=== PATIENT | female | born 1990 | race Caucasian/White ===

== ENCOUNTER 2019-07-30 10:30 | Inpatient (IN) ==
[2019-07-30] MEDS ORDERED: LACTATED RINGERS 1,000 ML IV ONE (10:58)
[2019-07-30] MEDS ORDERED: ACETAMINOPHEN 325 MG TABLET PO ONE (11:00)
[2019-07-30] MEDS ORDERED: ONDANSETRON 4 MG/2 ML VIAL IV ONE ×2 (11:02→13:10)
--- NOTE | 2019-07-30 11:06 | Emergency Department Note ---
General Adult HPI - General Chief complaint: Cold/Flu Symptoms Stated complaint: Fever, cough, body aches, nausea Time Seen by Provider: 07/30/19 10:35 Source: patient Mode of arrival: ambulatory - History of Present Illness HPI Narrative: 28-year-old female presents to ED via private vehicle with a history of cough, generalized body aches and fevers off and on all week up. She does state that she had a temperature of 104 this morning. Did not take any Tylenol. She's had some sweats, little bit of nausea, decreased by mouth intake, but denies any diarrhea, nice abdominal pain or chest pain, she does have a nonproductive cough. Exposed to someone from [place] the end of June. She does live with her boyfriend who is currently not symptomatic. No history of asthma, she feels a little bit short of breath, little bit winded and fatigued. no History of lower extremity pain or swelling. She takes metformin for PCO S, denies history of diabetes. Denies any loss of smell or hearing, denies sore throat, she has had headaches off and on, denies headache at this time, no vomiting - Related Data Home Medications Medication Instructions Recorded Confirmed levonorgestrel 20 mcg/24 hours (5 1 device INTRAUTERI ONCE 12/20/18 07/26/19 yrs) 52 mg intrauterine device Previous Rx's Medication Instructions Recorded metformin 500 mg tablet 500 mg PO BID #180 tab 04/12/19 spironolactone 50 mg tablet See Rx Instructions .ROUTE 04/12/19 .COMPLEX #180 each Allergies Allergy/AdvReac Type Severity Reaction Status Date / Time Cefaclor [From [facility]] AdvReac Unknown Unknown Verified 07/26/19 11:29 Review of Systems All systems ED: reviewed and negative except as stated. Constitutional: Reports: fever, chills, weakness, sweats Eyes: Denies: eye pain ENT ED: Denies: ear pain, throat pain, dental pain, hearing loss, congestion Cardiovascular: Reports: dyspnea on exertion. Denies: chest pain, palpitations Respiratory: Reports: shortness of breath, cough. Denies: wheezes Gastrointestinal: Reports: nausea. Denies: abdominal pain, vomiting Genitourinary: Denies: dysuria, urgency Musculoskeletal: Denies: back pain Neurological: Denies: headache Endocrine: Reports: fatigue Past Medical History - Past Medical History [facility] Narrative: History of polycystic ovarian syndrome. History of obesity Source: nursing notes reviewed Surgical history ED: Reports: non-contributory Family history: Reports: non-contributory - Social History smoking status: Never smoker Alcohol use: Reports: None, Rarely Physical Exam Limitations: no limitations General appearance: alert, in no apparent distress, nontoxic Head: atraumatic, normocephalic, normal inspection Eye: Present: normal appearance, PERRL, EOMI. Absent: conjunctival injection ENT: Present: normal exam, normal oropharynx, mucous membranes moist, TM's normal bilaterally, normal external ear exam Neck: Present: normal inspection, full ROM, trachea midline. Absent: tenderness, meningismus, lymphadenopathy, thyromegaly Chest: Present: normal inspection, symmetric chest wall rise. Absent: tenderness Respiratory: Present: normal lung sounds bilaterally. Absent: respiratory distress, rales/crackles, wheezes, stridor, accessory muscle use Cardiovascular: Present: regular rate, normal rhythm, normal heart sounds Abdominal: Present: soft, normal bowel sounds. Absent: distention, tenderness Extremities: Present: normal inspection, full ROM. Absent: tenderness Back: Present: normal inspection. Absent: CVA tenderness (R), CVA tenderness (L) Neurological: Present: alert, oriented X3, CN II-XII intact. Absent: motor sensory deficit Psychiatric: Present: normal affect, normal mood Skin: Present: warm, dry, normal color. Absent: rash, hives, cyanosis, erythema Course Vital Signs Temperature 98.0 F 07/30/19 10:31 Pulse Rate 115 H 07/30/19 10:31 Respiratory Rate 20 07/30/19 10:31 Blood Pressure 132/85 07/30/19 10:31 Pulse Oximetry (%) 85 L 07/30/19 10:31 Temperature 98.3 F 07/30/19 11:55 Pulse Rate 115 H 07/30/19 14:37 Respiratory Rate 21 07/30/19 14:37 Blood Pressure 119/74 07/30/19 14:37 Pulse Oximetry (%) 94 07/30/19 14:37 Medical Decision Making - MDM Narrative Medical decision making narrative: Impression is pneumonia, bilateral. - Lab Data Lab results reviewed: Yes I reviewed the patient's lab results. Result diagrams: 07/30/19 13:13 07/30/19 12:55 Lab Results 07/30/19 07/30/19 07/30/19 Range/Units 12:06 12:55 12:55 WBC TNP RBC TNP Hgb TNP Hct TNP MCV TNP MCH TNP MCHC TNP RDW TNP Plt Count TNP MPV TNP Total Counted Not Reportable Seg Neutrophils % (38-78) % Band Neutrophils % Not Reportable Lymphocytes % (15-49) % Monocytes % (Manual) (1-12) % Platelet Estimate Not Reportable RBC Morphology Not Reportable D-Dimer (0.00-0.40) ug/ml VBG Lactic Acid (0.5-2.0) mmol/L Sodium 130 L (133-145) mmol/L Potassium 3.9 (3.3-5.1) mmol/L Chloride 94 L (96-108) mmol/L Carbon Dioxide 22 (22-30) mmol/L Anion Gap 14.0 (8-16) BUN 5 L (6-20) mg/dl Creatinine 0.8 (0.6-1.1) mg/dl GFR Calculation 100 Glucose 113 H (70-105) mg/dL Calcium 8.5 L (8.6-10.4) mg/dl Total Bilirubin 0.4 (0.0-1.0) mg/dL AST 12 (0-37) U/l ALT 17 (0-40) U/l Alkaline Phosphatase 73 (39-117) U/L Total Creatine Kinase (24-170) IU/L C-Reactive Protein (0.0-0.8) mg/dl Total Protein 7.1 (5.9-8.4) gm/dL Albumin 3.6 (3.2-5.2) gm/dL Globulin 3.5 (2.2-3.7) gm/dL Albumin/Globulin Ratio 1.0 (1.0-2.3) Procalcitonin 0.34 (<0.10) ng/mL 07/30/19 07/30/19 07/30/19 Range/Units 12:57 12:58 12:59 WBC RBC Hgb Hct MCV MCH MCHC RDW Plt Count MPV Total Counted Seg Neutrophils % (38-78) % Band Neutrophils % Lymphocytes % (15-49) % Monocytes % (Manual) (1-12) % Platelet Estimate RBC Morphology D-Dimer 2.81 H (0.00-0.40) ug/ml VBG Lactic Acid 1.1 (0.5-2.0) mmol/L Sodium (133-145) mmol/L Potassium (3.3-5.1) mmol/L Chloride (96-108) mmol/L Carbon Dioxide (22-30) mmol/L Anion Gap (8-16) BUN (6-20) mg/dl Creatinine (0.6-1.1) mg/dl GFR Calculation Glucose (70-105) mg/dL Calcium (8.6-10.4) mg/dl Total Bilirubin (0.0-1.0) mg/dL AST (0-37) U/l ALT (0-40) U/l Alkaline Phosphatase (39-117) U/L Total Creatine Kinase 66 (24-170) IU/L C-Reactive Protein 32.7 H (0.0-0.8) mg/dl Total Protein (5.9-8.4) gm/dL Albumin (3.2-5.2) gm/dL Globulin (2.2-3.7) gm/dL Albumin/Globulin Ratio (1.0-2.3) Procalcitonin (<0.10) ng/mL 07/30/19 Range/Units 13:13 WBC 13.5 H RBC 4.28 Hgb 12.0 Hct 36.0 MCV 84.1 MCH 28.0 MCHC 33.3 RDW 13.5 Plt Count 322 MPV 10.0 Total Counted 100 Seg Neutrophils % 86 H (38-78) % Band Neutrophils % Not Reportable Lymphocytes % 10 L (15-49) % Monocytes % (Manual) 4 (1-12) % Platelet Estimate Normal RBC Morphology Normal D-Dimer (0.00-0.40) ug/ml VBG Lactic Acid (0.5-2.0) mmol/L Sodium (133-145) mmol/L Potassium (3.3-5.1) mmol/L Chloride (96-108) mmol/L Carbon Dioxide (22-30) mmol/L Anion Gap (8-16) BUN (6-20) mg/dl Creatinine (0.6-1.1) mg/dl GFR Calculation Glucose (70-105) mg/dL Calcium (8.6-10.4) mg/dl Total Bilirubin (0.0-1.0) mg/dL AST (0-37) U/l ALT (0-40) U/l Alkaline Phosphatase (39-117) U/L Total Creatine Kinase (24-170) IU/L C-Reactive Protein (0.0-0.8) mg/dl Total Protein (5.9-8.4) gm/dL Albumin (3.2-5.2) gm/dL Globulin (2.2-3.7) gm/dL Albumin/Globulin Ratio (1.0-2.3) Procalcitonin (<0.10) ng/mL - Radiology Data Radiology results reviewed: Yes I reviewed the patient's radiology results. Disposition Pt seen by COMPANY ACCOUNTANT/PA only: No Clinical Impression: Pneumonia Disposition: Xfer As Inpt ([facility]) Condition: Good Referrals: iKm Adames ARNP [Primary Care Provider] -
--- NOTE | 2019-07-30 11:25 | XRay Report ---
CLINICAL INFORMATION: dyspnea COMPARISON: None. FINDINGS: Heart size, mediastinum and pulmonary vessels are unremarkable. Moderate patchy left and smaller patchy right basilar infiltrate appreciated. Small left pleural effusion noted IMPRESSION: Moderate patchy left and small patchy right basilar infiltrate and small left pleural effusion Interpreted and Authenticated by: West Workman 07/30/19
[2019-07-30 13:54] LABS: Mean Cell Volume 84.1 fL (80.0-100.0); Mean Corpuscular HGB Conc 33.3 g/dL (31.0-36.0); Platelet Count 322 K/mcL (140-440); RBC 4.28 M/mcL (3.59-5.38); Red Cell Distribution Width 13.5 % (11.5-14.5); WBC 13.5 K/mcL (4.50-11.00)
[2019-07-30] MEDS ORDERED: IBUPROFEN 100 MG/5 ML ORAL SUSP PO ONE ×2 (13:55→14:00)
[2019-07-30 14:14] LABS: Lymphocytes % 10 % (15-49); Monocytes % (Manual) 4 % (1-12); Platelet Estimate NORMAL (NORMAL); RBC Morphology NORMAL (NORMAL); Segmented Neutrophils % 86 % (38-78)
[2019-07-30 14:18] LABS: C-Reactive Protein 32.7 mg/dl (0.0-0.8); Creatine Kinase 66 IU/L (24-170)
[2019-07-30 14:22] LABS: Bilirubin,Total 0.4 mg/dL (0.0-1.0); Blood Urea Nitrogen 5 mg/dl (6-20); Calcium 8.5 mg/dl (8.6-10.4)
[2019-07-30 14:23] LABS: ALT/SGPT 17 U/l (0-40); AST/SGOT 12 U/l (0-37); Albumin 3.6 gm/dL (3.2-5.2); Alkaline Phosphatase 73 U/L (39-117); Carbon Dioxide 22 mmol/L (22-30); Chloride 94 mmol/L (96-108); Globulin 3.5 gm/dL (2.2-3.7); Glomerular Filtration Rate 100; Glucose 113 mg/dL (70-105)
[2019-07-30] MEDS ORDERED: LEVOFLOXACIN 750 MG/150 ML BAG IV ONE (14:23)
[2019-07-30] MEDS ORDERED: PIPERACILLIN SODIUM/TAZOBACTAM 3.375 GM in DEXTROSE 5% IN WATER 50 ML IV ONE (14:24)
[2019-07-30] MEDS ORDERED: DEXTROSE 5% IN WATER 50 ML IV ONE (14:33)
--- NOTE | 2019-07-30 15:28 | Internal Med History&Physical ---
Medical - H&P: [facility] Patient information: Note initiated : 07/30/19 at 3:24 pm Service Date, if different from initiated Date: [] Patient: Meme Khan a 28 y/o F admitted on for Fever, cough, body aches, nausea. Chief Complaint: [] History of present illness: Ms. Khan is a 28 year old F Presents to the ED with continued fever. Patient states that on Thursday she developed a fever and then [facility]. Today morning she was evaluated by [facility] with a COVID test which was negative, this was a rapid test. She is continued a fever and chills. She developed occasional dry cough several days ago. She had a little bit of shortness of breath yesterday not as much today. She is had several episodes of nausea vomiting past couple nights. She does have some diarrhea but this is not too uncommon for her. [facility] [employer] [facility] [employer] about a week ago. She did have a visit from [place] on July 15, that person does not seem to have any symptoms at this point. She also complains of body aches and headaches. In the ED she evaluated have a check today which showed bilateral infiltrates. She was 85% on room air when she first arrived. She is tachycardic and mildly tachypneic. Procalcitonin was mildly elevated at 0.34 as well as CRP was significant elevated. Lactate was okay and d-dimer is elevated part of work-up for coronavirus. She denies any history of thrombosis or pain under legs. She is on oral contraceptive pills and has a job where she sits most of the time. She is also found to have low sodium 130. And leukocytosis. Review of Systems: Pertinent positives above. Denies chest or abdominal pain/. Remaining 10 point review of system reviewed negative Medical - H&P: PMH Medical history: Medical History (Last Reviewed 07/26/19 @ 12:47 by Kaylee Multani DO) Headache (Chronic) BMI 40.0-44.9, adult (Chronic) Abnormal facial hair (Chronic) Polycystic ovarian disease (Chronic) Elevated testosterone level in female (Chronic) Heartburn (Chronic) Acanthosis nigricans (Chronic) IUD check up (Chronic) Past Surgical History (Last Reviewed 07/26/19 @ 11:21 by Patricia Belcher CMA) Hx of fracture of arm (Chronic ~2000) History of tonsillectomy and adenoidectomy (Chronic ~1995) Family History (Last Reviewed 07/26/19 @ 11:21 by Patricia Belcher CMA) states her mother had asthma and did not know her father's history Social History (Last Updated 07/26/19 @ 12:51 by Kaylee Multani DO) Denies tobacco alcohol or drug use lives at home with boyfriend Medical - H&P: Meds Home Medications Medication Instructions Recorded Confirmed Type levonorgestrel 20 mcg/24 hours (5 1 device INTRAUTERI ONCE 12/20/18 07/26/19 History yrs) 52 mg intrauterine device metformin 500 mg tablet 500 mg PO BID #180 tab 04/12/19 07/26/19 Rx spironolactone 50 mg tablet See Rx Instructions .ROUTE 04/12/19 07/26/19 Rx .COMPLEX #180 each Allergies Allergy/AdvReac Type Severity Reaction Status Date / Time Cefaclor [From [facility]] AdvReac Unknown Unknown Verified 07/26/19 11:29 Medical - H&P: Exam - Constitutional Vitals: Temp Pulse Resp BP Pulse Ox 98.3 F 111 H 24 H 101/78 96 07/30/19 11:55 07/30/19 14:17 07/30/19 14:17 07/30/19 13:32 07/30/19 14:17 Exam: General: Alert, Awake, No acute Distress, obese Eyes/N/T: EOMI, PERRL, Head/Neck: neck supple, normocephalic atraumatic CV: Tacky but regular, No murmurs, normal s1/s2 Pulm: Diminished right base, no wheezing or rhonchi Abd: soft, nontender, +BS x4 Ext: no clubbing/cyanosis/edema Neuro: Alert, no focal deficits, moves all extremities, CN 2-12 grossly intact, symmetrical strength b/l upper/lower, sensations intact b/l upper/lower Skin: warm/dry Medical - H&P: Reslt - Labs CBC & Chem 7: 07/30/19 13:13 07/30/19 12:55 Labs: Short CBC 07/30/19 07/30/19 Range/Units 12:06 13:13 WBC TNP 13.5 H Hgb TNP 12.0 Hct TNP 36.0 Plt Count TNP 322 BMP 07/30/19 12:55 Sodium 130 L Potassium 3.9 Chloride 94 L Carbon Dioxide 22 BUN 5 L Creatinine 0.8 Glucose 113 H Calcium 8.5 L Cardiac Enzymes 07/30/19 Range/Units 12:57 Total Creatine Kinase 66 (24-170) IU/L Liver Function 07/30/19 Range/Units 12:55 Total Bilirubin 0.4 (0.0-1.0) mg/dL AST 12 (0-37) U/l ALT 17 (0-40) U/l Alkaline Phosphatase 73 (39-117) U/L Albumin 3.6 (3.2-5.2) gm/dL Medical - H&P: A/P - Narrative A/P Narrative: A: *PNA: suspect viral with bacterial superinfection vs atypical PNA -CXR with b/l infiltrates *Acute hypoxic respiratory failure: *Hyponatremia: *PCOS: on metformin/aldactone, Levonorgestrel IUD *Obesity: P: -Levaquin, pending SC/BC -myco/strep/leg -RVP and Covid pending -O2 supp, wean as able -IVF, f/u sodium -f/u PCT -ppx: lovenox
[2019-07-30] MEDS ORDERED: LACTULOSE 20 GM/30 ML ORAL.SOL PO PRN (17:12)
[2019-07-30] MEDS ORDERED: POTASSIUM CHLORIDE 40 MEQ in DEXTROSE 5% IN WATER 500 ML IV PRN (17:12)
[2019-07-30] MEDS ORDERED: IPRATROPIUM/ALBUTEROL 3 ML AMPUL.NEB NEB PRN (17:12)
[2019-07-30] MEDS ORDERED: MAGNESIUM SULFATE 2 GM/50 ML BAG IV PRN (17:12)
[2019-07-30] MEDS ORDERED: SENNOSIDES 1 TABLET PO PRN (17:12)
[2019-07-30] MEDS ORDERED: POLYETHYLENE GLYCOL 3350 17 GM PACKET PO PRN (17:12)
[2019-07-30] MEDS ORDERED: POTASSIUM CHLORIDE 20 MEQ TABLET PO PRN ×2 (17:12)
[2019-07-30] MEDS ORDERED: ONDANSETRON 4 MG/2 ML VIAL IV PRN (17:12)
[2019-07-30] MEDS ORDERED: LEVOFLOXACIN 750 MG/150 ML BAG IV SCH (17:12)
--- NOTE | 2019-07-30 18:12 | Ultrasound Report ---
CLINICAL INFORMATION: Elevated d-dimer COMPARISON: None. FINDINGS: The entire deep venous system, of both lower extremities, including the common femoral, superficial femoral, popliteal and paired trifurcation calf veins are easily compressible and show normal venous blood flow on color and spectral Doppler. No evidence of thrombus IMPRESSION: Negative exam - no evidence of deep vein thrombosis in either lower extremity. Interpreted and Authenticated by: West Workman 07/30/19
[2019-07-30] MEDS: ENOXAPARIN 40 MG/0.4 ML SYRINGE SQ SCH (19:41)
[2019-07-30] MEDS ORDERED: LEVONORGESTREL INTRAUTERI SCH (20:15)
[2019-07-30] MEDS: 0.9 % SODIUM CHLORIDE 10 ML SYRINGE IV SCH (20:31)
[2019-07-30] MEDS: DOCUSATE SODIUM 100 MG CAPSULE PO SCH (20:31)
[2019-07-30] MEDS ORDERED: metFORMIN 500 MG TABLET PO SCH (21:00)
[2019-07-31] MEDS: ACETAMINOPHEN 325 MG TABLET PO PRN ×2 (00:15→08:27)
[2019-07-31 07:23] LABS: Hematocrit 36.2 % (34.1-44.9); Hemoglobin 11.6 g/dL (11.2-15.7); Mean Cell Volume 87.9 fL (80.0-100.0); Mean Platelet Volume 10.2 fL (7.4-10.4); Platelet Count 296 K/mcL (140-440); RBC 4.12 M/mcL (3.59-5.38); Red Cell Distribution Width 13.7 % (11.5-14.5); WBC 12.1 K/mcL (4.50-11.00)
[2019-07-31 07:31] LABS: ALT/SGPT 16 U/l (0-40); AST/SGOT 12 U/l (0-37); Albumin 3.5 gm/dL (3.2-5.2); Albumin/Globulin Ratio 0.9 (1.0-2.3); Alkaline Phosphatase 83 U/L (39-117); Bilirubin,Direct < 0.2 mg/dL (0.0-0.3); Bilirubin,Total 0.3 mg/dL (0.0-1.0); Blood Urea Nitrogen 6 mg/dl (6-20); Calcium 8.4 mg/dl (8.6-10.4); Carbon Dioxide 23 mmol/L (22-30); Globulin 3.7 gm/dL (2.2-3.7); Glomerular Filtration Rate 118; Glucose 87 mg/dL (70-105); Lactate Dehydrogenase 206 U/L (94-250); Phosphorous 2.8 mg/dL (2.7-4.5); Triglycerides 94 mg/dl (<150); Uric Acid 5.1 mg/dL (2.5-8.0)
[2019-07-31 07:33] LABS: Chloride 94 mmol/L (96-108)
[2019-07-31] MEDS ORDERED: SODIUM CHLORIDE 1 GM TABLET PO ONE (07:57)
--- NOTE | 2019-07-31 07:58 | Internal Med Progress Note ---
Medical - PN: Subj Patient information: Note initiated : 07/31/19 at 7:53 am Service Date, if different from initiated Date: [] Patient: Meme Khan a 28 y/o F admitted on 07/30/19 for Fever, cough, body aches, nausea. Chief Complaint: [] Interval history: Ms. Khan is a 28 year old F Presents to the ED with continued fever. Patient states that on Thursday she developed a fever and then [facility]. Today morning she was evaluated by [facility] with a COVID test which was negative, this was a rapid test. She is continued a fever and chills. She developed occasional dry cough several days ago. She had a little bit of shortness of breath yesterday not as much today. She is had several episodes of nausea vomiting past couple nights. She does have some diarrhea but this is not too uncommon for her. [facility] [employer] about a week ago. She did have a visit from [place] on July 15, that person does not seem to have any symptoms at this point. She also complains of body aches and headaches. In the ED she evaluated have a check today which showed bilateral infiltrates. She was 85% on room air when she first arrived. She is tachycardic and mildly tachypneic. Procalcitonin was mildly elevated at 0.34 as well as CRP was significant elevated. Lactate was okay and d-dimer is elevated part of work-up for coronavirus. She denies any history of thrombosis or pain under legs. She is on oral contraceptive pills and has a job where she sits most of the time. She is also found to have low sodium 130. And leukocytosis. 07/30 She has occasional headache. She has a nonproductive cough. Fever this morning. Mild shortness of breath with certain positions. appears comfortable and nontoxic. Review of Systems: denies nausea/vomiting/chest or abdominal pain/diarrhea. Otherwise see above. - Constitutional Vitals: Vital Signs Temp Pulse Resp BP Pulse Ox 100.2 F H 99 H 22 113/69 93 07/31/19 05:43 07/31/19 04:00 07/31/19 04:00 07/31/19 04:00 07/31/19 04:00 Period Temp Pulse Resp BP Sys/Alba Pulse Ox Last 24 Hr 98.0 F-102.2 F 91-120 13-27 82-132/55-85 85-99 Intake and Output 07/30/19 07/31/19 07/31/19 21:59 05:59 13:59 Intake Total 150 1000 Balance 150 1000 Weight 115.212 kg Intake & Output: Intake & Output 07/30/19 07/31/19 07/31/19 21:59 05:59 13:59 Intake Total 150 1000 Balance 150 1000 Weight 115.212 kg Intake: IV 150 Oral 1000 Other: Urine Appearance Clear Urine Odor Normal # Voids 2 Exam: General: Alert, Awake, No acute Distress, obese Eyes/N/T: EOMI Head/Neck: neck supple, CV: mildly Tacky but regular, No murmurs, Pulm: mild b/l fine rales R>L, no wheezing Abd: soft, nontender, +BS x4 Ext: no clubbing/cyanosis/edema Neuro: Alert, no focal deficits, moves all extremities, Skin: warm/dry Medical - PN: Obj Da - Labs CBC & Chem 7: 07/31/19 05:17 07/31/19 05:17 Labs: Abnormal Lab Results 07/31/19 07/31/19 07/30/19 05:17 05:17 13:13 WBC 12.1 H 13.5 H Seg Neutrophils % 86 H Lymphocytes % 10 L D-Dimer Sodium 131 L Chloride 94 L BUN Glucose Calcium 8.4 L GGT 55 H C-Reactive Protein 37.0 H Albumin/Globulin Ratio 0.9 L 07/30/19 07/30/19 07/30/19 12:58 12:57 12:55 WBC Seg Neutrophils % Lymphocytes % D-Dimer 2.81 H Sodium 130 L Chloride 94 L BUN 5 L Glucose 113 H Calcium 8.5 L GGT C-Reactive Protein 32.7 H Albumin/Globulin Ratio Meds: Medications Acetaminophen (Tylenol) 650 mg PO Q6HP PRN PRN Reason: PAIN/FEVER > 101 Last Admin: 07/31/19 00:15 Dose: 650 mg Documented by: Albuterol/Ipratropium (Duoneb) 3 ml NEB Q4HP PRN PRN Reason: Shortness Of Breath Docusate Sodium (Colace) 100 mg PO BID LINDA Last Admin: 07/30/19 20:31 Dose: Not Given Documented by: Enoxaparin Sodium (Lovenox) 40 mg SQ DAILY [facility] Last Admin: 07/30/19 19:41 Dose: 40 mg Documented by: Potassium Chloride 40 meq/ (Dextrose) 520 mls @ 130 mls/hr IV UD PRN PRN Reason: Potassium < 3 Magnesium Sulfate (Magnesium Sulfate) 2 gm in 50 mls @ 50 mls/hr IV UD PRN PRN Reason: Magnesium </= 1.6 Levofloxacin (Levaquin) 750 mg in 150 mls @ 100 mls/hr IV Q24H [facility]; Protocol Lactulose (Cephulac) 20 gm PO DAILYP PRN PRN Reason: Constipation Metformin HCl (Glucophage) 500 mg PO BIDCC [facility] Ondansetron HCl (Zofran) 4 mg IV Q4HP PRN PRN Reason: Nausea And Vomiting Polyethylene Glycol (Miralax) 17 gm PO DAILYP PRN PRN Reason: Constipation Potassium Chloride (Kdur) 40 meq PO UD PRN PRN Reason: Potssium is 3-3.5 Potassium Chloride (Kdur) 40 meq PO UD PRN PRN Reason: Potassium < 3 Senna (Senokot) 2 tab PO DAILYP PRN PRN Reason: Constipation Sodium Chloride (Saline Flush) 10 ml IV Q8 [facility] Last Admin: 07/30/19 20:31 Dose: 10 ml Documented by: Spironolactone (Aldactone) 50 mg PO BID [facility] Medical - PN: A/P - Time Spent With Patient Total time spent is greater than 50% in coordination of care (as documented) at patient's floor/unit and/or counseling patient: - Narrative A/P Narrative: A: *PNA: suspect viral with bacterial superinfection vs atypical PNA -CXR with b/l infiltrates, elevated PCT -RVP neg *Acute hypoxic respiratory failure: -on 2L NC *SIRS: -febrile, leukocytosis slowly improving *Hyponatremia: *PCOS: on metformin/aldactone, Levonorgestrel IUD *Obesity: P: -Levaquin, pending SC/BC -myco/strep/leg -COVID pending -O2 supp, wean as able -f/u PCT -IS -CXR in AM -ppx: lovenox
[2019-07-31 08:04] LABS: Band Neutrophils % 2 % (0-10); Eosinophils % (Manual) 1 % (0-7); Lymphocytes % 18 % (15-49); Monocytes % (Manual) 8 % (1-12); Platelet Estimate NORMAL (NORMAL); RBC Morphology NORMAL (NORMAL); Segmented Neutrophils % 71 % (38-78)
[2019-07-31] MEDS: 0.9 % SODIUM CHLORIDE 10 ML SYRINGE IV SCH ×4 (08:27→20:31)
[2019-07-31] MEDS: ENOXAPARIN 40 MG/0.4 ML SYRINGE SQ SCH (08:31)
[2019-07-31] MEDS: metFORMIN 500 MG TABLET PO SCH ×2 (08:33→17:27)
[2019-07-31] MEDS: SPIRONOLACTONE 25 MG TABLET PO SCH ×2 (08:34→19:18)
[2019-07-31] MEDS: DOCUSATE SODIUM 100 MG CAPSULE PO SCH ×2 (08:35→19:18)
[2019-07-31] MEDS: LEVOFLOXACIN 750 MG/150 ML BAG IV SCH (08:40)
[2019-08-01] MEDS: 0.9 % SODIUM CHLORIDE 10 ML SYRINGE IV SCH ×4 (04:04→20:30)
[2019-08-01 06:38] LABS: Basophils # (Auto) 0.03 K/mcL (0.00-0.30); Basophils % (Auto) 0.3 % (0.0-2.0); Eosinophils # (Auto) 0.32 K/mcL (0.00-0.70); Eosinophils % (Auto) 3.7 % (0.0-7.0); Hematocrit 34.4 % (34.1-44.9); Lymphocytes # (Auto) 2.38 K/mcL (1.50-4.80); Lymphocytes % (Auto) 27.3 % (15.5-49.0); Mean Cell Volume 88.7 fL (80.0-100.0); Mean Platelet Volume 10.2 fL (7.4-10.4); Monocytes # (Auto) 0.67 K/mcL (0.10-0.90); Monocytes % (Auto) 7.7 % (1.0-12.0); Platelet Count 345 K/mcL (140-440); RBC 3.88 M/mcL (3.59-5.38); Red Cell Distribution Width 14.2 % (11.5-14.5); WBC 8.7 K/mcL (4.50-11.00)
[2019-08-01 06:42] LABS: C-Reactive Protein 27.5 mg/dl (0.0-0.8)
[2019-08-01 06:47] LABS: Blood Urea Nitrogen 8 mg/dl (6-20); Calcium 8.8 mg/dl (8.6-10.4); Carbon Dioxide 21 mmol/L (22-30); Chloride 99 mmol/L (96-108); Glomerular Filtration Rate 118; Glucose 95 mg/dL (70-105)
--- NOTE | 2019-08-01 06:57 | XRay Report ---
INDICATION: f/u abnormal cxr TECHNIQUE: PA and lateral upright chest x-ray COMPARISON: Previous examination dated 07/30/2019 FINDINGS: Lungs: There are bilateral pulmonary parenchymal densities with bibasilar predominance. There is right apical density as well. Findings are nonspecific but are consistent with pneumonia. Atypical pneumonia including viral pneumonia are possible. Clinical correlation and follow-up radiographs recommended. Right apical infiltrates appear slightly worse. No other interval change. Heart, vascular: No significant cardiomegaly. Pulmonary vascularity is normal. No pulmonary edema or pulmonary congestion Mediastinum, ritesh: No mediastinal widening. No hilar mass Pleura:There is mild blunting of the left posterior costophrenic sulcus and small effusion is possible. Thoracic spine, ribs: No thoracic compression fracture. Ribs are negative. No fracture. No lytic lesion IMPRESSION: 1. Bilateral pulmonary parenchymal densities. Slight interval worsening in the right lung apex 2. Probable small left pleural effusion 3. Findings remain consistent with pneumonia Interpreted and Authenticated by: West Girard 08/01/19
[2019-08-01] MEDS: metFORMIN 500 MG TABLET PO SCH ×2 (07:38→16:44)
[2019-08-01] MEDS: ENOXAPARIN 40 MG/0.4 ML SYRINGE SQ SCH (09:11)
[2019-08-01] MEDS: DOCUSATE SODIUM 100 MG CAPSULE PO SCH ×2 (09:13→19:06)
[2019-08-01] MEDS: SPIRONOLACTONE 25 MG TABLET PO SCH ×2 (09:14→19:05)
[2019-08-01] MEDS: LEVOFLOXACIN 750 MG/150 ML BAG IV SCH (09:14)
--- NOTE | 2019-08-01 13:28 | Internal Med Progress Note ---
Medical - PN: Subj Patient information: Note initiated : 08/01/19 at 1:25 pm Service Date, if different from initiated Date: [] Patient: Meme Khan a 28 y/o F admitted on 07/30/19 for Fever, cough, body aches, nausea. Chief Complaint: [] Interval history: Ms. Khan is a 28 year old F Presents to the ED with continued fever. Patient states that on Thursday she developed a fever and then [facility]. Today morning she was evaluated by [facility] with a COVID test which was negative, this was a rapid test. She is continued a fever and chills. She developed occasional dry cough several days ago. She had a little bit of shortness of breath yesterday not as much today. She is had several episodes of nausea vomiting past couple nights. She does have some diarrhea but this is not too uncommon for her. She was at [place] [facility] [employer] [facility] [employer] about a week ago. She did have a visit from [place] on July 15, that person does not seem to have any symptoms at this point. She also complains of body aches and headaches. In the ED she evaluated have a check today which showed bilateral infiltrates. She was 85% on room air when she first arrived. She is tachycardic and mildly tachypneic. Procalcitonin was mildly elevated at 0.34 as well as CRP was significant elevated. Lactate was okay and d-dimer is elevated part of work-up for coronavirus. She denies any history of thrombosis or pain under legs. She is on oral contraceptive pills and has a job where she sits most of the time. She is also found to have low sodium 130. And leukocytosis. 07/30 She has occasional headache. She has a nonproductive cough. Fever this morning. Mild shortness of breath with certain positions. appears comfortable and nontoxic. 07/31-patient doing a lot better. Currently on 1 L oxygen. Interval worsening chest imaging however clinical improvement noted. On antibiotic coverage. COVID-19 test negative. Tolerating diet and physical therapy. - Constitutional Vitals: Vital Signs Temp Pulse Resp BP Pulse Ox 97.8 F 82 18 100/62 94 08/01/19 09:00 08/01/19 09:00 08/01/19 09:00 08/01/19 09:00 08/01/19 09:00 Period Temp Pulse Resp BP Sys/Alba Pulse Ox Last 24 Hr 97.8 F-100.6 F 82-108 16-22 100-114/62-78 92-96 Intake and Output 07/31/19 08/01/19 08/01/19 21:59 05:59 13:59 Intake Total 1040 250 Balance 1040 250 Weight 253 lb 6 oz Intake & Output: Intake & Output 07/31/19 08/01/19 08/01/19 21:59 05:59 13:59 Intake Total 1040 250 Balance 1040 250 Weight 253 lb 6 oz Intake: IV 150 Oral 890 250 Other: Meal Dinner Percent of Meal Consumed 75% Feeding Ability Independent Urine Appearance Clear Urine Odor Normal # Voids 1 1 General appearance: no acute distress, obese Exam: Alert oriented Nonlabored breathing No anxiety Nondistended abdomen Medical - PN: Obj Da - Labs CBC & Chem 7: 08/01/19 05:13 08/01/19 05:13 Labs: Abnormal Lab Results 08/01/19 08/01/19 08/01/19 05:13 05:13 05:13 WBC Hgb 11.0 L Seg Neutrophils % Lymphocytes % D-Dimer Sodium Chloride Carbon Dioxide 21 L BUN Glucose Calcium GGT C-Reactive Protein 27.5 H Albumin/Globulin Ratio 07/31/19 07/31/19 07/30/19 05:17 05:17 13:13 WBC 12.1 H 13.5 H Hgb Seg Neutrophils % 86 H Lymphocytes % 10 L D-Dimer Sodium 131 L Chloride 94 L Carbon Dioxide BUN Glucose Calcium 8.4 L GGT 55 H C-Reactive Protein 37.0 H Albumin/Globulin Ratio 0.9 L 07/30/19 07/30/19 07/30/19 12:58 12:57 12:55 WBC Hgb Seg Neutrophils % Lymphocytes % D-Dimer 2.81 H Sodium 130 L Chloride 94 L Carbon Dioxide BUN 5 L Glucose 113 H Calcium 8.5 L GGT C-Reactive Protein 32.7 H Albumin/Globulin Ratio Meds: Medications Acetaminophen (Tylenol) 650 mg PO Q6HP PRN PRN Reason: PAIN/FEVER > 101 Last Admin: 07/31/19 08:27 Dose: 650 mg Documented by: Albuterol/Ipratropium (Duoneb) 3 ml NEB Q4HP PRN PRN Reason: Shortness Of Breath Docusate Sodium (Colace) 100 mg PO BID [facility] Last Admin: 08/01/19 09:13 Dose: Not Given Documented by: Enoxaparin Sodium (Lovenox) 40 mg SQ DAILY [facility] Last Admin: 08/01/19 09:11 Dose: 40 mg Documented by: Potassium Chloride 40 meq/ (Dextrose) 520 mls @ 130 mls/hr IV UD PRN PRN Reason: Potassium < 3 Magnesium Sulfate (Magnesium Sulfate) 2 gm in 50 mls @ 50 mls/hr IV UD PRN PRN Reason: Magnesium </= 1.6 Levofloxacin (Levaquin) 750 mg in 150 mls @ 100 mls/hr IV Q24H [facility]; Protocol Last Admin: 08/01/19 09:14 Dose: 100 mls/hr Documented by: Lactulose (Cephulac) 20 gm PO DAILYP PRN PRN Reason: Constipation [facility] Last Admin: 08/01/19 07:38 Dose: Not Given Documented by: Ondansetron HCl (Zofran) 4 mg IV Q4HP PRN PRN Reason: Nausea And Vomiting Polyethylene Glycol (Miralax) 17 gm PO DAILYP PRN PRN Reason: Constipation Potassium Chloride (Kdur) 40 meq PO UD PRN PRN Reason: Potssium is 3-3.5 Potassium Chloride (Kdur) 40 meq PO UD PRN PRN Reason: Potassium < 3 Senna (Senokot) 2 tab PO DAILYP PRN PRN Reason: Constipation Sodium Chloride (Saline Flush) 10 ml IV Q8 [facility] Last Admin: 08/01/19 04:04 Dose: 10 ml Documented by: Spironolactone (Aldactone) 50 mg PO BID [facility] Last Admin: 08/01/19 09:14 Dose: Not Given Documented by: Medical - PN: A/P - Time Spent With Patient Total time spent is greater than 50% in coordination of care (as documented) at patient's floor/unit and/or counseling patient: 25 - 35 minutes - Narrative A/P Narrative: * Multifocal pneumonia viral versus atypical. Continue antibiotic coverage. Clinical improvement noted. White count downtrending from 12.7-8. COVID-19 test pending. Viral respiratory panel negative * Acute hypoxic story failure currently on 1 L oxygen and weaning as tolerated. * Sepsis second above clinically improved * Hyponatremia resolved * Polycystic ovarian syndrome on metformin/Aldactone/levonorgestrel IUD * Obesity-dietary modification interventions * Full code * Prophylax Heparin Plan * Continue antibiotic coverage * Wean oxygen as tolerated * PT OT nutrition support * Discharge planning
[2019-08-02] MEDS: 0.9 % SODIUM CHLORIDE 10 ML SYRINGE IV SCH (04:17)
[2019-08-02] MEDS: metFORMIN 500 MG TABLET PO SCH (07:12)
[2019-08-02] MEDS ORDERED: LEVOFLOXACIN 750 MG TABLET PO SCH (09:00)
--- NOTE | 2019-08-02 09:11 | Discharge Summary ---
Medical - DS: Prov Patient information: Note initiated : 08/02/19 at 9:09 am Service Date, if different from initiated Date: [] Patient: Meme Khan a 28 y/o F admitted on 07/30/19 for Fever, cough, body aches, nausea. Chief Complaint: [] Date of admission: 07/30/19 17:02 Discharge date: 08/02/19 Primary care physician: Kim Adames Consults: 07/30/19 15:01 Consult to Physician [CONS] Stat Comment: Consulting Provider: Jadiel Gonzalez Reason For Exam: Physician to Consult Medical - DS: Meds - Discharge Medications Prescriptions: Levofloxacin [Levaquin] 750 mg PO DAILY #4 tab Transmission Status: Received by [facility] 2005 Active and Home Medications: Home Medications levonorgestrel 20 mcg/24 hours (5 yrs) 52 mg intrauterine device 1 device INTRAUTERI ONCE 12/20/18 [History Confirmed 07/30/19 Last Taken Unknown] metformin 500 mg tablet 500 mg PO BID #180 tab 04/12/19 [Rx Confirmed 07/30/19 Last Taken 07/28/19 20:00] spironolactone 50 mg tablet See Rx Instructions .ROUTE .COMPLEX #180 each 04/12/19 [Rx Confirmed 07/30/19 Last Taken 07/28/19 20:00] Cefdinir 300 mg PO BID #10 cap 08/02/19 [Rx Last Taken Unknown] Levofloxacin [Levaquin] 750 mg PO DAILY #4 tab 08/02/19 [Rx Last Taken Unknown] Medical - DS: Hosp Hospital Course: Discharge diagnosis * Multifocal pneumonia viral versus atypical. Continue antibiotic coverage for additional 4 days. Clinical improvement noted. White count downtrending from 12.7-8. COVID-19 test pending. Viral respiratory panel negative. Discharging home today * Acute hypoxic respiratory failure clinically improved now on room air * Sepsis secondary to above clinically resolved * Hyponatremia resolved * Polycystic ovarian syndrome on metformin/Aldactone/levonorgestrel IUD * Obesity-dietary modification interventions Brief hospital course Ms. Khan is a 28 year old F Presents to the ED with continued fever. Patient states that on Thursday she developed a fever and then [facility]. Today morning she was evaluated by [facility] with a COVID test which was negative, this was a rapid test. She is continued a fever and chills. She developed occasional dry cough several days ago. She had a little bit of shortness of breath yesterday not as much today. She is had several episodes of nausea vomiting past couple nights. She does have some diarrhea but this is not too uncommon for her. She was [facility] [place] [facility] [employer] about a week ago. She did have a visit from [place] on July 15, that person does not seem to have any symptoms at this point. She also complains of body aches and headaches. In the ED she evaluated have a check today which showed bilateral infiltrates. She was 85% on room air when she first arrived. She is tachycardic and mildly tachypneic. Procalcitonin was mildly elevated at 0.34 as well as CRP was significant elevated. Lactate was okay and d-dimer is elevated part of work-up for coronavirus. She denies any history of thrombosis or pain under legs. She is on oral contraceptive pills and has a job where she sits most of the time. She is also found to have low sodium 130. And leukocytosis. 07/30 She has occasional headache. She has a nonproductive cough. Fever this morning. Mild shortness of breath with certain positions. appears comfortable and nontoxic. 07/31-patient doing a lot better. Currently on 1 L oxygen. Interval worsening chest imaging however clinical improvement noted. On antibiotic coverage. COVID-19 test negative. Tolerating diet and physical therapy. 08/01-COVID test pending. However patient clinically improved. Now on room air. Likely bacterial. Responding to antibiotics. Continuation for 4 days oral antibiotics. Discharging home with advice as below Discharge diagnosis: . - Time Spent with Patient Total time spent providing and/or coordinating discharge services: Greater than 30 minutes Medical - DS: Exam - Constitutional Vitals: Vital Signs Temp Pulse Resp BP Pulse Ox 08/02/19 05:53 90 08/02/19 04:14 97.0 F 83 14 106/72 94 08/02/19 01:29 92 08/01/19 23:39 98.0 F 88 14 110/68 93 08/01/19 19:30 90 08/01/19 19:12 90 08/01/19 19:09 97.7 F 87 18 112/68 90 08/01/19 16:08 97.9 F 88 18 117/63 91 08/01/19 13:00 97.8 F 87 16 116/68 91 Intake and Output 08/01/19 08/02/19 08/02/19 21:59 05:59 13:59 Intake Total 800 440 Balance 800 440 Intake: Oral 800 440 Other: # Voids 1 Weight 245 lb Medical - DS: Data Labs on day of discharge: Labs from last 24 hours 08/02/19 08/02/19 08:30 08:30 WBC Pending RBC Pending Hgb Pending Hct Pending MCV Pending MCH Pending MCHC Pending RDW Pending Plt Count Pending MPV Pending Total Counted Pending Band Neutrophils % Not Reportable Platelet Estimate Pending RBC Morphology Pending Sodium Pending Potassium Pending Chloride Pending Carbon Dioxide Pending Anion Gap Pending BUN Pending Creatinine Pending GFR Calculation Pending Glucose Pending Uric Acid Pending Calcium Pending Phosphorus Pending Magnesium Pending Total Bilirubin Pending Direct Bilirubin Pending GGT Pending AST Pending ALT Pending Alkaline Phosphatase Pending Lactate Dehydrogenase Pending Total Protein Pending Albumin Pending Globulin Pending Albumin/Globulin Ratio Pending Triglycerides Pending Preliminary micro results at discharge 07/30/19 14:55 Blood Culture - Preliminary Blood 07/30/19 13:13 Blood Culture - Preliminary Blood Medical - DS: A/P - Patient/Caregiver Discharge Instructions Activity: increase activity as tolerated Diet: Regular Diet Additional Instructions: Continue antibiotic for additional 5 days. Follow-up with PCP in 5 to 7 days. Maintain COVID-19 precautions until results available. Increase activity as tolerated. May resume regular diet as tolerated. Return to ER if worsening shortness of breath, fever, chills. Prescriptions: Levofloxacin [Levaquin] 750 mg PO DAILY #4 tab Transmission Status: Received by [facility] 2006 - Follow up Plan Follow up with: Kim Adamse ARNP [Primary Care Provider] - 08/09/19 10:30 am Disposition: Home, Self-Care Care Plan Goals: This discharge packet is provided to you to help keep you informed about your care. We want to ensure you get everything you need when you go home. You will also be receiving a call from us in a few days to follow up with you and see how you are doing since your discharge. This gives us a chance to listen to any concerns you maybe experiencing since you were discharged or any additional needs you may have, as well as providing us feedback on your care experience. We strive to always provide excellent care and thank you for your feedback and for choosing [facility]. Prognosis: Good Rehab Potential: Fair I certify that the patient requires SNF services: No Overall status at discharge: patient is progressing back to baseline
[2019-08-02 09:25] LABS: Hematocrit 35.9 % (34.1-44.9); Hemoglobin 11.6 g/dL (11.2-15.7); Mean Cell Volume 87.1 fL (80.0-100.0); Mean Corpuscular HGB Conc 32.3 g/dL (31.0-36.0); Mean Platelet Volume 9.9 fL (7.4-10.4); Platelet Count 422 K/mcL (140-440); RBC 4.12 M/mcL (3.59-5.38); Red Cell Distribution Width 14.2 % (11.5-14.5); WBC 7.7 K/mcL (4.50-11.00)
[2019-08-02] MEDS: DOCUSATE SODIUM 100 MG CAPSULE PO SCH (09:36)
[2019-08-02] MEDS: ENOXAPARIN 40 MG/0.4 ML SYRINGE SQ SCH (09:36)
[2019-08-02] MEDS: SPIRONOLACTONE 25 MG TABLET PO SCH (09:36)
[2019-08-02 09:45] LABS: Band Neutrophils % 2 % (0-10); Eosinophils % (Manual) 6 % (0-7); Lymphocytes % 36 % (15-49); Monocytes % (Manual) 2 % (1-12); Platelet Estimate NORMAL (NORMAL); RBC Morphology NORMAL (NORMAL); Segmented Neutrophils % 54 % (38-78)
[2019-08-02 09:49] LABS: ALT/SGPT 36 U/l (0-40); AST/SGOT 20 U/l (0-37); Albumin 3.7 gm/dL (3.2-5.2); Albumin/Globulin Ratio 1.1 (1.0-2.3); Alkaline Phosphatase 79 U/L (39-117); Bilirubin,Direct < 0.2 mg/dL (0.0-0.3); Bilirubin,Total 0.2 mg/dL (0.0-1.0); Blood Urea Nitrogen 9 mg/dl (6-20); Carbon Dioxide 23 mmol/L (22-30); Chloride 100 mmol/L (96-108); Globulin 3.4 gm/dL (2.2-3.7); Glomerular Filtration Rate 118; Glucose 90 mg/dL (70-105); Lactate Dehydrogenase 193 U/L (94-250); Phosphorous 4.3 mg/dL (2.7-4.5); Triglycerides 97 mg/dl (<150)
[2019-08-04 14:30] LABS: M. Pneumoniae IGG < or = 0.90 ISR; M. Pneumoniae IGM 27 U/mL
== END 2019-08-02 12:20 | disposition home or self-care (01) | DRG 871 ==
LOC: ED 10:30 → MEDSUR 17:02
PROVIDERS: ADMIT Internal Medicine; ATTEND Internal Medicine